=== PATIENT | female | born 1955 | race Caucasian/White ===

== ENCOUNTER → 2018-08-05 14:26 | Outpatient (CLI) | payer OTHER, SELFPAY ==
--- NOTE | 2018-08-05 14:38 | US_ITS ---
STUDY: ULTRASOUND OF THE FEMALE PELVIS - COMPLETE REASON FOR EXAM: Female, 63 years old. Abdominal bloating. History of hysterectomy. LMP: Unknown. TECHNIQUE: Transabdominal and Transvaginal, the latter utilized to optimize detail TECHNICAL QUALITY: Adequate. COMPARISON: CT abdomen and pelvis February 14, 2014. FINDINGS: The uterus is surgically absent. The right ovary is non-visualized. There is no visualized right adnexal mass or complex lesion. There is normal arterial and normal venous vascularity. The left ovary is non-visualized. There is no visualized left adnexal mass or complex lesion. There is normal arterial and normal venous vascularity. There is no fluid in the cul-de-sac. The pre void volume of the bladder was 131.7 ml. Polycystic ovary disease: No. US/Pelvic (Non ) IMPRESSION: 1. The uterus is surgically absent. 2. The bilateral ovaries are not visualized or 3. No demonstrated pelvic mass or fluid collection. Electronically Signed: Lenny Enriquez MD at 16:43 EST , Service support ,
== END ==
PROVIDERS: Family Provider Internal Medicine; PCP Internal Medicine; Referring Provider Internal Medicine; Visit Provider Internal Medicine
DX: R14.0 Abdominal distension (gaseous) (principal)
CPT/HCPCS: 76856

== ENCOUNTER → 2020-12-16 15:14 | Outpatient (CLI) | payer MEDICAID, SELFPAY ==
[2020-12-16 15:45] LABS: Hematocrit 40.4 % (37-47); Hemoglobin 12.7 g/dL (12.0-15.0); Mean Corp Hgb Conc 31.4 g/dL (32-36); Mean Corpuscular Hgb 27.5 pg (27.0-32.0); Mean Corpuscular Volume 87.4 fL (81-99); Mean Platelet Vol. 11.4 fl (6.2-12.0); Platelet Count 282 K/mm3 (150-450); RBC Distribution Width CV 13.2 % (11.6-14.6); RBC Distribution Width SD 42.2 fl (35.1-43.9); Red Blood Count 4.62 M/mm3 (4.2-5.4); White Blood Count 8.2 K/mm3 (4.4-11.0)
== END ==
PROVIDERS: PCP Internal Medicine; Referring Provider Internal Medicine; Visit Provider Internal Medicine
DX: K62.5 Hemorrhage of anus and rectum (principal)
CPT/HCPCS: 85027

== ENCOUNTER → 2021-01-22 15:47 | Outpatient (CLI) | payer MEDICARE, SELFPAY ==
[2021-01-22 17:45] LABS: CRP 5.96 mg/L (0.0-3.0)
[2021-01-24 16:08] LABS: Endomysial Antibody IgA Negative (Negative)
[2021-01-24 22:31] LABS: Immunoglobulin A 232 mg/dL (87-352); t-Transglutaminase IgA <2 U/mL (0-3)
== END ==
PROVIDERS: PCP Internal Medicine; Referring Provider Internal Medicine Gastroenterology; Visit Provider Internal Medicine Gastroenterology
DX: R19.7 Diarrhea, unspecified (principal)
CPT/HCPCS: 36415; 82784; 83516; 86140; 86255

== ENCOUNTER → 2021-06-11 07:17 | Outpatient (CLI) | payer MEDICARE, SELFPAY ==
--- NOTE | 2021-06-11 07:33 | MRI_ITS ---
STUDY: MRI BRAIN WITHOUT CONTRAST REASON FOR EXAM: Female, 65 years old. ATAXIA, ABN TANDEM GAIT TEST, memory issues, unsteady TECHNIQUE: Standardized multiplanar fat and water weighted pulse sequences were obtained. COMPARISON: None. FINDINGS: Normal size of the ventricles and extra-axial spaces for the patient''s age. There are multiple white matter hyperintensities, distributed throughout the deep white matter tracts of the cerebral hemispheres, consistent with mild chronic white matter ischemic changes. Normal bilateral basal ganglia. Normal thalami. There is no extra-axial fluid accumulation. Normal sella turcica, pituitary gland, infundibular stalk, optic chiasm and hypothalamus. Normal tectal plate and pineal gland. Normal midbrain, joseph and medulla. Normal cerebellum. Normal basal cisterns. MRI/Brain without Contrast IMPRESSION: No acute intracranial abnormality. Mild chronic microvascular ischemic changes. Electronically Signed: Claudia Basilio MD at 15:29 EST Tel , Service support ,
== END ==
PROVIDERS: PCP Internal Medicine; Referring Provider Internal Medicine; Visit Provider Internal Medicine
DX: R26.9 Unspecified abnormalities of gait and mobility (principal)
CPT/HCPCS: 70551

== ENCOUNTER 2021-08-22 11:18 | Outpatient (CLI) | payer MEDICARE, SELFPAY ==
[2021-08-22 12:45] LABS: CPK Total, Creatine Kinase 76 U/L (26-192); Thyroid Stim Hormone (TSH) 1.15 uIU/mL (0.358-3.74)
[2021-09-01 20:07] LABS: Free Kappa Light Chains 25.8 mg/L (3.3-19.4); Free Lambda Light Chains 18.2 mg/L (5.7-26.3); Intrinsic Factor Ab 1.1 AU/mL (0.0-1.1); Vitamin B1, Thiamine 143.3 nmol/L (66.5-200.0)
[2021-09-01 20:25] LABS: Myoglobin, Serum 29 ng/mL (25-58)
== END 2021-08-22 23:59 | disposition home or self-care (01) ==
LOC: MTLAB 11:19
PROVIDERS: PCP Internal Medicine; Referring Provider Psychiatry & Neurology Neurology; Visit Provider Psychiatry & Neurology Neurology
DX: R26.9 Unspecified abnormalities of gait and mobility (principal); E11.9 Type 2 diabetes mellitus without complications; G31.84 Mild cognitive impairment of uncertain or unknown etiology; E53.8 Deficiency of other specified B group vitamins; R20.0 Anesthesia of skin
CPT/HCPCS: 36415; 82550; 82746; 83874; 83883; 84425; 84443; 86340

== ENCOUNTER 2021-09-03 10:39 | Outpatient (CLI) | payer MEDICARE, SELFPAY ==
[2021-09-05 14:09] LABS: Albumin 4.1 g/dL (2.9-4.4); Alpha-1-Globulins 0.2 g/dL (0.0-0.4); Alpha-2-Globulins 0.9 g/dL (0.4-1.0); Gamma Globulin 1.3 g/dL (0.4-1.8); Immunoglobulin A 255 mg/dL (87-352); Immunoglobulin G 1387 mg/dL (586-1602); Immunoglobulin M 149 mg/dL (26-217); PROEL- TOTAL PROTEIN 7.6 g/dL (6.0-8.5)
== END 2021-09-03 23:59 | disposition home or self-care (01) ==
LOC: MTLAB 10:40
PROVIDERS: PCP Internal Medicine; Referring Provider Psychiatry & Neurology Neurology; Visit Provider Psychiatry & Neurology Neurology
DX: R20.0 Anesthesia of skin (principal); G62.9 Polyneuropathy, unspecified
CPT/HCPCS: 36415; 82784; 84165; 86334; 86335

== ENCOUNTER 2021-09-12 07:48 | Outpatient (CLI) | payer MEDICARE, SELFPAY ==
--- NOTE | 2021-09-12 07:53 | CDU_ITS ---
Reason For Study: CAROTID STENOSIS Rt. Velocities/BP Lt. Velocities/BP Prox CCA 77.3/18.6 cm/sec. Prox CCA 100.2/22.8 cm/sec. Mid CCA 95.6/29.1 cm/sec. Mid CCA 101.4/30.2 cm/sec. Dist CCA 120.4/36.9 cm/sec. Dist CCA 84.3/29.0 cm/sec. Prox ICA 118.0/32.1 cm/sec. Prox ICA 86.7/29.0 cm/sec. Mid ICA 97.9/15.7 cm/sec. Mid ICA 97.8/42.5 cm/sec. Dist ICA 86.3/12.7 cm/sec. Dist ICA 90.4/33.9 cm/sec. Rt. ICA/CCA = 118.0/120.4=1.0. Lt. ICA/CCA = 97.8/101.4=1.0. Prox ECA 118.2/17.7 cm/sec. Prox ECA 100.2/17.9 cm/sec. Rt. Vert. 47.9/13.8 cm/sec. Lt. Vert. 55.6/18.2 cm/sec. Right Extracranial There is intimal thickening but no significant atherosclerotic plaque noted in the right common carotid artery. There is intimal thickening but no significant atherosclerotic plaque noted in the right internal carotid artery. There is no significant atherosclerotic plaque noted in the right external carotid artery. Antegrade flow is noted in the right vertebral artery. Left Extracranial There is intimal thickening but no significant atherosclerotic plaque noted in the left common carotid artery. There is intimal thickening but no significant atherosclerotic plaque noted in the left internal carotid artery. There is no significant atherosclerotic plaque noted in the left external carotid artery. Antegrade flow is noted in the left vertebral artery. Procedure Carotid Duplex 31662. This is a Carotid Duplex examination using B-mode, color flow and specral Doppler. Exam performed in department. VL/Carotid Duplex Ultrasound Interpretation Summary No significant atherosclerotic plaque or stenosis noted in the internal carotid arteries bilaterally. Flow within the vertebral arteries is antegrade bilaterally. Ordering Physician: Isabel Bro Referring Physician: Isabel Bro Performed By: Jovita Kearney, ASHLEY, RVT
== END 2021-09-12 23:59 | disposition home or self-care (01) ==
LOC: CVS 07:49
PROVIDERS: PCP Internal Medicine; Referring Provider Internal Medicine; Visit Provider Internal Medicine
DX: I65.23 Occlusion and stenosis of bilateral carotid arteries (principal)
CPT/HCPCS: 93880

== ENCOUNTER 2021-09-15 08:55 | Day surgery (SDC) | payer MEDICARE, SELFPAY ==
[2021-09-15] VITALS (12 sets, daily range): BP systolic 97–132; BP diastolic 65–86; PULSE 86–104; RESP 16; TEMP 36.5–37.2; O2SAT 92–99; BMI 38.8
--- NOTE | 2021-09-15 | MASS_PTH ---
PATIENT: MARGARET GARCIA LOC: [facility] [place] U#:[id number] AGE/SX: 66/F ROOM: RE09/15/[address]: Dr. Rasheed Roque MD : 1955 BED: DIS: 09/15/2021 SPEC #: [id number] RECD: 09/15/21 15:53 STATUS: LETICIA REQ #: [id number] ELSA: 09/15/21 00:[address]: Rasheed Roque DEPT: SURGICAL PATHOLOGY RECD BY: Joey Iqbal ENTERED: 09/16/21 10:36 SP TYPE: Mass OTHR DR: Dr. Isabel Bro, DO Tissues: Arm, NOS Procedures: Surgery Specimen Level III HEADER OPERATION: Excision painful soft tissue mass, outer arm PRE-OP DIAGNOSIS: 6 cm painful soft tissue mass left outer arm TISSUE SUBMITTED: Left outer arm mass MICROSCOPIC DIAGNOSIS Left outer arm mass, excision: Mature adipose tissue consistent with lipoma. AM:mariel 09/17/2021 MICROSCOPIC DESCRIPTION Slides are reviewed. GROSS DESCRIPTION Received in fixative is one container labeled with the patient's name and designated left arm mass. The specimen consists of multiple irregular fragments of simmons-yellow fibrofatty tissue ranging in size from 0.8 to 8 cm. Serial sections reveal homogenous yellow cut surfaces without areas of cyst formation, necrosis or myxoid change. Ct Tech sections are submitted in one cassette. / AM:mariel 09/16/2021 TC:1 CPT: 66288
--- NOTE | 2021-09-15 00:03 | PCM.HP.BLA ---
History and Physical Date of Admission: 09/15/21 HISTORY OF PRESENT ILLNESS 65 year old woman presents with a painful soft tissue mass left outer arm that has been increasing in size over the last several months. Recently she has noticed intermittent paresthesias in her left arm. She has no problem with range of motion of the left upper extremity. She did have left carpal tunnel surgery back in 2016. She also had bilateral trigger thumb surgery in 2017. Besides the mass left outer arm, she also complains of trigger finger right ring finger. Occasionally it gets stuck and she has to manually straighten out the finger. She denies fever. She denies trauma. She denies recent infection. She denies numbness in her fingers. She presents at this time for further evaluation and treatment. PAST MEDICAL HISTORY Anemia Arthritis Back problem Carpal tunnel syndrome, bilateral Diabetes Former smoker High blood pressure High cholesterol IBS (irritable bowel syndrome) Mass of left upper extremity Osteoarthritis Trigger finger, right ring finger Vitamin D deficiency PAST SURGICAL HISTORY H/O bilateral breast reduction surgery H/O total hysterectomy Hematoma History of carpal tunnel release of both wrists History of dilation and curettage Trigger finger ALLERGIES acetaminophen [From Vicodin] hydrocodone [From Vicodin] tramadol [From Ultram] Penicillins MEDICATIONS amlodipine cholecalciferol (vitamin D3) levothyroxine metformin semaglutide simvastatin FAMILY HISTORY Mother Anesthesia complication Angina at rest Heart disease High cholesterol CVA (cerebral vascular accident) SOCIAL HISTORY Smoking Status: Former smoker alcohol intake: never substance use type: does not use REVIEW OF SYSTEMS General - Denies fever, fatigue, and weight loss. Eyes - Denies cataracts and glaucoma. ENT - Denies nasal congestion and sore throat. Endocrine - Denies excessive thirst and urination. Has diabetes mellitus. Skin - Denies skin cancer. Has painful soft tissue mass left outer arm. Musculoskeletal - Has joint pain, joint stiffness, weakness of muscles and joints. Denies back pain, and arthritis. Had bilateral carpal tunnel surgery. Had bilateral trigger thumb surgery. Has trigger finger right ring finger. Neuro - Denies headaches. Cardiovascular - Denies chest pain, fatigue, and shortness of breath with exertion. Psych - Denies anxiety and depression. Respiratory - Denies chronic cough and shortness of breath. Patient is a former smoker. Gastrointestinal - Denies nausea, vomiting and constipation. Has diarrhea. Hematologic - Denies abnormal bruising and bleeding. Genitourinary - Denies hematuria and urinary frequency. PHYSICAL EXAMINATION General - Alert and Oriented HEENT - PERRL. EOMI. Throat is clear. Neck - Supple and nontender. No cervical adenopathy. Lungs - Clear to auscultation. Heart - Regular rate and rhythm. Abdomen - Soft and nondistended. Extremities - FROM. No axillary adenopathy. Radial pulses are palpable. On the left outer arm is a soft tissue mass that measures 6 cm. It is mobile. No evidence of infection. No ulceration. Mild tenderness to palpation. No sensory deficits with pinprick fingers left hand. Tinel is negative at wrist bilaterally and negative at elbow bilaterally. On the right ring finger is evidence of triggering with clicking noted at the A1 loren in the distal palm. She was able to straighten the finger out on its own. Neuro - CN II-XII grossly intact. Psych - Normal mood and affect. ASSESSMENT 1. 6 cm painful soft tissue mass left outer arm. 2. Trigger finger right ring finger. 3. Diabetes mellitus. 4. Former smoker. 5. History of bilateral carpal tunnel surgery. 6. History of bilateral trigger thumb surgery. PLAN Patient has and enlarging soft tissue mass left outer arm that has associated intermittent paresthesias. She has no problems with using her left arm and shoulder. Recommend excision of this painful soft tissue mass left outer arm and send it to Pathology for analysis to rule out carcinoma. Due to the anticipated large size of the cavity, a drain may be needed for 7-10 days. She will also wear a compression johnson wrap for 6 weeks to also help in minimizing a seroma in the wound. If a seroma DEVELOPS THEN WOULD NEED DRAINAGE UNDER ULTRASOUND GUIDANCE. Surgery can be done under local anesthesia and IV sedation on an outpatient basis. She also has a trigger finger right ring finger. She is still able to extend her finger without using her other hand. She was not interested in steroid injection at this time. She will wait until her left arm surgery heals before deciding on a date for surgical release of her trigger finger right ring finger. I think the paresthesias are related to the presence of the mass left outer arm. After surgery, I anticipate the paresthesias should improve. If they don't or if she starts to develop consistent numbness in her fingers, then will repeat the NCS and EMG. Also at the time of the NCS, will need an x-ray of her neck to check to see if the symptomatology is related to a problem in the neck. AT THE TIME OF THAT SURGERY WE CAN ALSO ORDER AN X-RAY OF THE RIGHT HAND TO LOOK FOR ANY BONY ABNORMALITIES THAT MAY BE RESPONSIBLE FOR HER SYMPTOMATOLOGY. AT THE TIME OF THE TRIGGER FINGER SURGERY, IT CAN BE DONE UNDER A ROSA ELENA BLOCK ANESTHESIA WITH TOURNIQUET CONTROL. PATIENT HAS DIABETES MELLITUS AND HER HGBA1C NEEDS TO BE LESS THAN 8 BEFORE PROCEEDING WITH ELECTIVE SURGERY. HER LAST VALUE IN THE COMPUTER SHOWED A HGBA1C LEVEL OF 5.8 ON 06/03/16. WILL CHECK WITH HER PCP TO SEE IF THEY HAVE A RECENT LEVEL. OTHERWISE WILL ORDER IT A PREOP LAB THAT WOULD NEED TO BE DONE PRIOR TO SURGERY. Patient was informed of the risks and complications of the procedure including alternatives to surgery. These were discussed with the patient personally. Patient voices understanding and wishes to proceed. Some of the risks and complications were included in a form from the [employer]. Some of the risks and complications that were discussed included but were not inclusive of failure to diagnose including symptom relief, pain, infection, numbness, stiffness, loss of digit, RSD (CRPS), need for further surgery, contracture, and wound healing problems. We discussed the current risks associated with COVID-19. While it is understood that there is a community spread of COVID-19, the risk of justin COVID-19 while at [facility] ([facility]) is very low; however, the risk cannot be completely mitigated because of the community spread of the disease. We discussed in detail the risk of exposure to and/or potential harm posed by the COVID-19 virus with having a surgery/procedure at this time versus the risk of delaying the surgery/procedure. It is not possible to know either the risk of delaying the surgery or procedure or chance of getting an infection with perfect accuracy, but a joint decision was made to proceed at this time with the scheduled surgery/procedure as indicated on the consent form. Patient was notified that we will need to comply with any screening or testing [facility] wishes to perform or that surgery may be delayed for any positive results. Procedure Criteria Procedure Type: Elective COVID Risk Discussion: The surgeon/proceduralist and patient have discussed in detail the risk of exposure to and/or potential harm posed by the COVID-19 virus with having a surgery/procedure at this time versus the risk of delaying the surgery/procedure. It is not possible to know either the risk of delaying the surgery or procedure or chance of getting an infection with perfect accuracy, but a joint decision was made between the patient and the surgeon/proceduralist to proceed at this time with the scheduled surgery/procedure as indicated on the consent form.
[2021-09-15] MEDS: Lactated Ringers 1,000 ML 15 ML IV ×2 (09:05→14:19)
[2021-09-15 09:41] LABS: Bedside Glucose 115 mg/dL (74-106)
[2021-09-15] MEDS: Lidocaine 1% /Epi 1:100 (50ml) 50 ML VIAL (12:57)
[2021-09-15] MEDS: Mupirocin Ointment 22gm Tube 1 APPLIC (14:08)
--- NOTE | 2021-09-15 14:12 | OP.PCM_ITS ---
Problems Associated Problem List Diagnoses (1) Mass of left upper extremity: (2) Former smoker: (3) Diabetes: (4) Hemoglobin A1c less than 7.0%: Report of Operation Date of Procedure: 09/15/21 Pre-Operative Diagnosis: 1. 6 cm painful soft tissue mass left outer arm. 2. Diabetes mellitus. 3. HgbA1c of 5.8 on 06/05/21 4. Former smoker. Post-Operative Diagnosis: Same. Surgery/Procedure Performed:: Excision 6 cm painful soft tissue mass left outer arm with 6 cm layered closure. Description of Surgical Findings:: 65 year old woman presents with a painful soft tissue mass left outer arm that has been increasing in size over the last several months. Recently she has noticed intermittent paresthesias in her left arm. She has no problem with range of motion of the left upper extremity. She did have left carpal tunnel surgery back in 2016. She also had bilateral trigger thumb surgery in 2017. Besides the mass left outer arm, she also complains of trigger finger right ring finger. Occasionally it gets stuck and she has to manually straighten out the finger. She denies fever. She denies trauma. She denies recent infection. She denies numbness in her fingers. Patient has diabetes mellitus and her latest HgbA1c was 5.8 on 06/04/21. For elective surgery, HgbA1c needs to be less than 8. Patient was informed of the risks and complications of the procedure including alternatives to surgery. These were discussed with the patient personally. Patient voices understanding and wishes to proceed. Some of the risks and complications were included in a form from the [employer]. I used Tae absorbable hemostat. Reference Number - [id number]. Lot Number - [id number]. May 01, 2026. Surgeon: Rasheed Roqeu acquisition lead: None Type of Anesthesia: Local MAC (xylocaine with epinephrine and IV sedation.) Specimen's removed: Painful soft tissue mass left outer arm to Pathology. Drains: Alen. Estimated Blood Loss (mL): 25. Description of Procedure: * Patient was taken to OR in supine position and was given IV sedation. The left arm was prepped and draped in the usual fashion. SCD's were placed for DVT prophylaxis. Perioperative antibiotics were given intravenously. The soft tissue mass left outer arm was infiltrated with xylocaine and epinephrine. After waiting 5 minutes for the anesthetic to take effect, I made a longitudinal incision over the soft tissue mass down into the subcutaneous tissue. The soft tissue mass was sharply excised. It was firm to palpation. It showed some adherence to the underlying muscle. The soft tissue mass was sent to Pathology for analysis to rule out carcinoma. The soft tissue mass was clinically consistent with a fibrous lipoma. The wound was irrigated with saline. Hemostasis was obtained with electrocautery. I placed a size 15 Alen drain through a separate stab incision inferiorly and secured to the skin with 3-0 Nylon suture. I sprayed Tae absorbable hemostat into the wound to minimize seroma formation. The wound was closed in a layered fashion with 3-0 Monocryl interrupted sutures for the deep dermis and subcutaneous tissue. The skin was approximated with 4-0 Prolene simple interrupted and vertical mattress interrupted sutures. Antibiotic ointment was applied to the suture line followed by 4x4 gauze and a compression johnson wrap. * Patient tolerated the procedure well and was sent to PACU in satisfactory condition. Patient will be sent home on antibiotics and pain medication. She will keep her left arm elevated during the initial postoperative period. Patient will followup in a week for a wound check and for discussion of the pathology report. Will remove the drain in 7-10 days and will remove the sutures in 2 weeks. * Grafts/Implants Used: Tae. Complications None. Admit VTE Documentation VTE Present on Admission: No VTE Mechan Device Prophylaxis: SCD's VTE Pharm Prophylaxis ordered?: No Addendum Addendum: Surgery Charges CPT - 86509 ICD-10 - R22.32, E11.9, R73.09, Z87.891
--- NOTE | 2021-09-15 14:12 | PCM.DC ---
Discharge Instructions Diet Discharge Diet: Carb Control Diet Activity Discharge Activity: May Not Drive (until seen in the office.), May Not Shower (until the drain is removed. ) and - (elevate left arm. no heavy lifting.) May shower in (days): 7 (after the drain is removed in the office.) May resume sexual activity in: 10-14 days Weight Bearing Status: Weight bearing as tolerated Lifting Restrictions: 20 lbs. Keep extremity elevated above heart level: Left Arm Dressing / Incision Call your doctor if your incision/area has: Continuous Slow Oozing, Sudden Increased Bleeding, Increased Pain/ Swelling, Increased Redness, Foul Smelling Discharge and Swelling at the incision site Call your doctor if you observe: Fever of 101 or Higher, Coldness, Increased Pain, Shortness of breath, Chest pain, Calf discomfort and Uncontrolled pain Suture Line Care: - (will apply the vac tomorrow.) Remove Dressing in: 2 days (vac dressing change 3 times per week at 150 mmHg continuous suction.) Cleanse incision/area with: Soap & Water (at the time of the vac change.) Drain: Suction (to bulb suction. empty and record output daily.) Follow Up Care Please Follow Up With: Rasheed Roque MD When: one week. call [phone] for appt. Test Results: Test results from this visit will be discussed in further detail at your follow-up appointment, if applicable. Discharge Plan Admission Primary Reason for Your Visit: painful lipoma left outer arm surgery Attending Provider: Rasheed Roque Primary Care Provider: Isabel Bro Discharge Orders/Prescriptions Prescriptions: New clindamycin HCl [Cleocin HCl] 300 mg capsule 300 mg PO TID Qty: 30 RF: 0 L.acidoph,saliva-B.bif-S.therm [Acidophilus Probiotic Blend] 175 mg capsule 1 cap PO DAILY Qty: 20 RF: 0 oxycodone-acetaminophen [Percocet] 5-325 mg tablet 1 tab PO Q4H PRN (Reason: pain (scale score 7-10)) 7 Days Qty: 40 RF: 0 diazepam [Valium] 5 mg tablet 5 mg PO BID PRN (Reason: spasms) Qty: 20 RF: 0 clindamycin HCl [Cleocin HCl] 300 mg capsule 300 mg PO TID Qty: 15 RF: 0 L.acidoph,saliva-B.bif-S.therm [Acidophilus Probiotic Blend] 175 mg capsule 1 cap PO DAILY Qty: 20 RF: 0 oxycodone-acetaminophen [Percocet] 5-325 mg tablet 1 tab PO Q4H PRN (Reason: pain (scale score 7-10)) 7 Days Qty: 40 RF: 0 diazepam [Valium] 5 mg tablet 5 mg PO BID PRN (Reason: spasms) Qty: 20 RF: 0 No Action Ozempic 1 mg/dose (2 mg/1.5 mL) pen injector 1 mg subcut QWEEK RF: 0 metformin 500 mg tablet 50 mg PO BIDWMEAL RF: 0 amlodipine 5 mg tablet 5 mg PO DAILY RF: 0 levothyroxine 112 mcg tablet 112 mcg PO DAILY RF: 0 hydrochlorothiazide 25 mg tablet 25 mg PO DAILY RF: 0 cholecalciferol (vitamin D3) 50 mcg (2,000 unit) capsule 4,000 unit PO DAILY RF: 0 mecobalamin (vitamin B12) 10,000 mcg recon soln 1,000 mcg IM QMONTH RF: 0 simvastatin 20 mg Tablet 20 mg PO QHS RF: 0 Referrals / Follow Up: Isabel Bro DO [Primary Care Provider] - Disposition Disposition (needs filled in before D/C Order can be placed): Home, Self Care
--- NOTE | 2021-09-15 14:20 | PCM.DC ---
Discharge Instructions Diet Discharge Diet: Carb Control Diet Activity May shower in (days): 7 (after the drain is removed in the office.) May resume sexual activity in: 10-14 days Weight Bearing Status: Weight bearing as tolerated Keep extremity elevated above heart level: Left Arm Dressing / Incision Call your doctor if your incision/area has: Continuous Slow Oozing, Sudden Increased Bleeding, Increased Pain/ Swelling, Increased Redness, Foul Smelling Discharge and Swelling at the incision site Call your doctor if you observe: Fever of 101 or Higher, Coldness, Increased Pain, Shortness of breath, Chest pain, Calf discomfort and Uncontrolled pain Suture Line Care: - (will apply the vac tomorrow.) Cleanse incision/area with: Soap & Water (at the time of the vac change.) Drain: Suction (to bulb suction. empty and record output daily.) Follow Up Care Please Follow Up With: Rasheed Roque MD Test Results: Test results from this visit will be discussed in further detail at your follow-up appointment, if applicable. Discharge Plan Admission Primary Reason for Your Visit: painful lipoma left outer arm surgery Attending Provider: Rasheed Roque Primary Care Provider: Isabel Bro Discharge Orders/Prescriptions Prescriptions: New clindamycin HCl [Cleocin HCl] 300 mg capsule 300 mg PO TID Qty: 30 RF: 0 L.acidoph,saliva-B.bif-S.therm [Acidophilus Probiotic Blend] 175 mg capsule 1 cap PO DAILY Qty: 20 RF: 0 oxycodone-acetaminophen [Percocet] 5-325 mg tablet 1 tab PO Q4H PRN (Reason: pain (scale score 7-10)) 7 Days Qty: 40 RF: 0 diazepam [Valium] 5 mg tablet 5 mg PO BID PRN (Reason: spasms) Qty: 20 RF: 0 No Action Ozempic 1 mg/dose (2 mg/1.5 mL) pen injector 1 mg subcut QWEEK RF: 0 metformin 500 mg tablet 50 mg PO BIDWMEAL RF: 0 amlodipine 5 mg tablet 5 mg PO DAILY RF: 0 levothyroxine 112 mcg tablet 112 mcg PO DAILY RF: 0 hydrochlorothiazide 25 mg tablet 25 mg PO DAILY RF: 0 cholecalciferol (vitamin D3) 50 mcg (2,000 unit) capsule 4,000 unit PO DAILY RF: 0 mecobalamin (vitamin B12) 10,000 mcg recon soln 1,000 mcg IM QMONTH RF: 0 simvastatin 20 mg Tablet 20 mg PO QHS RF: 0 Referrals / Follow Up: Isabel Bro DO [Primary Care Provider] - Disposition Disposition (needs filled in before D/C Order can be placed): Home, Self Care
[2021-09-15] MEDS: Acetaminophen 325 MG Tablet PO (15:45)
[2021-09-15] MEDS: oxyCODONE 5 MG Tablet PO (15:45)
== END 2021-09-15 23:59 | disposition home or self-care (01) ==
LOC: SDC 08:56 → AC 09:10
PROVIDERS: PCP Internal Medicine; Referring Provider Surgery; Visit Provider Surgery
PROC: (CPT 24071; principal; 2021-09-15 10:15)
DX: R22.32 Localized swelling, mass and lump, left upper limb (principal); E11.9 Type 2 diabetes mellitus without complications; Z87.891 Personal history of nicotine dependence; E78.00 Pure hypercholesterolemia, unspecified; R73.09 Other abnormal glucose; M65.341 Trigger finger, right ring finger
CPT/HCPCS: 24071; 01710; 82962; 87426; 88304; 88305; C9803; J7120; J2405

== ENCOUNTER 2021-11-28 07:00 | Outpatient (RCR) | payer MEDICARE, SELFPAY ==
--- NOTE | 2021-11-04 08:58 | HP.PTEVAL ---
Patient's Visit Information MARGARET GARCIA is a 66 year old F referred to Physical Therapy by Dr. Isabel Bro DO with a diagnosis of L shoulder calcific tendonitis. Date of Evaluation: 11/04/21 Physical Therapist: Javed Medina, PT, ATC - Visit Plan Frequency: 2-3x /Week Duration: 4-6 Weeks Plan: L shoulder AAROM, rot cuff and scap stab ex's, UBE, and HEP. CP for pain - Subjective Pt reports she has had L shoulder pain since June. Pt reports at that time she has told to go to PT, but had to have a L UE surgery performed in July, she she was just given the green light to proceed. Pt notes she had x-rays at the time that showed tendonitis and OA of the L shoulder. Pt notes she was also given a cortisone injection that helped a lot. Pt notes she still has pain though today, especially if she moves the wrong way. Pt notes Occasional sleep difficulty secondary to pain. Pt reports she had L UE tingling and numbness prior to her surgery, but rarely since. Pt is R hand dominant. Pt reports reaching across her body and reaching overhead causes her increased pain. No PMHx prior to June. 3/10 pain at rest on the top of her shoulder, 5/10 pain when at its worst. Pt is retired at this time. - Pain L shoulder Pain Intensity (Out of 10): 3 Pain Intensity Range: 5 - Objective Neuro: B UE sensation is WNL to light touch with exception to surrounding incision area. B bicipital reflex= 2/3. Palpation: Pt is very tender along the region of the supraspinatus region. Pt is also sore along the lateral aspect of the L shoulder. ROM: R shoulder flex= 150, abd= 130, ER= 65, IR WNL; L shoulder flex= 120, abd= 90, ER= 55, IR WNL. MMT: R shoulder flex= 13.7, abd= 15.6, ER= 17, IR= 18.6 #F; L shoulder flex= 4.3, abd= 4, ER= 6, IR= 16 #F. Special tests: Pt has a positive empty can test. No other pos tests today - Balance/Special Test Scores Quick DASH Score: 20.4525 - Goals Goal 1:: Decrease L shoulder pain x 50% to aid with sleep Goal Time Frame: 4-6 Weeks Goal 2:: Increase L shoulder strength x 5#F in all planes to aid with IADL's Goal Time Frame: 4-6 Weeks Goal 3:: Increase L shoulder flex and abd ROM x 20 degrees to aid with overhead lifting Goal Time Frame: 4-6 Weeks Goal 4:: I with HEP Goal Time Frame: 4-6 Weeks - Rehabilitation Potential Physical Therapy Diagnosis: L shoulder pain, weakness, and limited ROM secondary to rotator cuff insufficiency resulting in calcific tendonitis of the L biceps Rehabilitation Potential: Good - Anticipated Interventions Patient/Client Instruction: Educate patient on: Condition, Plan of Care For the Purpose of:: To improve self management Therapeutic Exercise to Include: Strength training, Endurance training, Flexibilty training, Active ROM, Scapular Strength/Stabilization For the Purpose of:: To decrease pain, To increase ROM, To improve muscle performance and motor function Cryotherapy (ice pack, ice massage): Yes For the Purpose of:: To decrease pain Thank you for the opportunity to evaluate your patient. For Medicare and Medicare HMO plans, please review the plan of care and approve it. It will need to be FAXED BACK to us at [phone] for Medicare purposes. For Medicare only, by signing this I certify the plan of care. Please let me know if there are questions or concerns regarding this plan of care. Physician Signature: Date:
--- NOTE | 2021-12-30 09:57 | HP.PTDCSUM ---
It has been my pleasure to treat MARGARET GARCIA referred by Dr. Isabel Bro DO, with the diagnosis of L shoulder calcific tendonitis for a total of 9 visit(s). Discharge Date: 11/28/21 Please see the following information for a summary of their discharge status. Subjective: Pt reports that her shoulder is doing good with no pain. She has had no pain for at least a week. She has HEP and is doing it at home. L shoulder Pain Intensity (Out of 10): 0 % Improvement: 100 Objective/Function: L shoulder flex 18.3#. L shoulder flex 163 degrees Goal 1:: Decrease L shoulder pain x 50% to aid with sleep Goal Progress: Goal Met Goal 2:: Increase L shoulder strength x 5#F in all planes to aid with IADL's Goal Progress: Goal Met Goal 3:: Increase L shoulder flex and abd ROM x 20 degrees to aid with overhead lifting Goal Progress: Goal Met Goal 4:: I with HEP Goal Progress: Goal Met Plan: DC PT to HEP Discharge Comments: DC PT to HEP If there are questions or concerns regarding this patient's physical therapy, please feel free to call me at [phone]. Thank you for the referral of this patient. Sincerely, Javed Medina, PT, ATC Balance/Gait/Functional tests - Balance/Special Test Scores Quick DASH Score: 2.2728
== END 2021-11-28 19:00 | disposition home or self-care (01) ==
LOC: PT 07:00
PROVIDERS: PCP Internal Medicine; Referring Provider Internal Medicine; Visit Provider Internal Medicine
DX: M75.32 Calcific tendinitis of left shoulder
CPT/HCPCS: 97110; 97161; 97530

== ENCOUNTER → 2022-02-16 | Outpatient (CLI) | payer MEDICARE, SELFPAY ==
[2022-02-16 18:28] LABS: Rheumatoid Factor < 10.0 IU/mL (<15)
== END | disposition home or self-care (01) ==
PROVIDERS: PCP Internal Medicine; Referring Provider Psychiatry & Neurology Neurology; Visit Provider Psychiatry & Neurology Neurology
DX: M19.90 Unspecified osteoarthritis, unspecified site (principal)
CPT/HCPCS: 36415; 86431

== ENCOUNTER → 2022-09-08 | Outpatient (CLI) | payer MEDICARE, SELFPAY ==
--- NOTE | 2022-09-08 08:02 | MRI_ITS ---
STUDY: MRI BRAIN WITHOUT CONTRAST REASON FOR EXAM: Female, 67 years old. WORSENING HEADACHES, blurred vision, gait issues TECHNIQUE: Standardized multiplanar fat and water weighted pulse sequences were obtained. COMPARISON: No relevant prior imaging available for comparison. HEMISPHERES, CEREBELLUM AND BRAINSTEM: 1. The cerebral parenchyma, ventricular system, subarachnoid spaces have normal configuration and density. There is a normal gyral pattern. There is normal lovett/white differentiation. No midline shift.. 2. The hemispheric white matter has normal appearance. 3. No intraparenchymal mass, hemorrhage, or acute territorial infarct. 4. The cerebellum, brainstem, basilar and suprasellar cisterns have normal appearance. No Chiari malformation. PITUITARY: Infundibulum and pituitary have normal configuration. Midline structures appear normal. CSF SPACES: Appropriate for age. No hydrocephalus. Basal cisterns are patent. VESSELS: 1. There are normal flow voids noted in the great vessels at the skull base ORBITS AND PARANASAL SINUSES: 1. Both globes, extraocular muscles, optic nerves and retrobulbar fat appear unremarkable. 2. Paranasal sinuses are clear. BONY ELEMENTS: Bony elements of the cranial vault, facial skeleton and skull base have normal appearance. SCALP AND SOFT TISSUES: Normal appearance of the soft tissues of the scalp and the visualized face OTHER: None MRI/Brain without Contrast IMPRESSION: 1. No intracranial mass, hemorrhage, or acute territorial infarct. 2. No radiographically significant sinus disease. Electronically Signed: Landry Hernandez DO at 13:18 EST ,
== END | disposition home or self-care (01) ==
PROVIDERS: PCP Internal Medicine; Referring Provider Internal Medicine; Visit Provider Internal Medicine
DX: R51.9 Headache, unspecified (principal); G89.29 Other chronic pain
CPT/HCPCS: 70551

== ENCOUNTER 2024-04-19 08:30 | Outpatient (RCR) | payer MEDICARE, SELFPAY ==
--- NOTE | 2024-03-23 10:29 | HP.PTEVAL_ITS ---
Patient's Visit Information Visit Information Visit Information: MARGARET GARCIA is a 68 year old F referred to Physical Therapy by Dr. Isabel Bro DO with a diagnosis of LEFT LEG PAIN. Date of Evaluation: 03/23/24 Physical Therapist: Rasheed Ag, PT, Cert MDT, OCS Visit Plan Frequency: 2x /Week Duration: 4 Weeks Plan: PT INTERVENTIONS FLEXABILITY IT BAND ,MANUAL THERAPY STM/STICK /HAWK TOOL I TBAND ,US ,/ESTIM /CP AND STRENGTHENING EX'S HIPS GLUT MEDIUS Subjective Subjective: This 68 y/o female presents to physical therapy with leg pain. Patient has 6 weeks lateral leg. Patient noticed pain with a lot of walking. Location of pain lateral leg pain mid thigh below knee. Dr prescribed meloxicam . No imaging . Patient has some h/o back pain .Patient has h/o epidural injection many years. Aggravating factors walking on treadmill ,extended standing. Patient has not noticed any pain with bending/lifting. Denies paresthesia/tingling -. Patient is able to sleeping initially but meloxicam helps. Coughing/sneezing -. Bowel/bladder - No abnoram night pain. SOCIAL: VOCATION: RETIRED Pain Left Lower Extremity: Pain Intensity (Out of 10): 6 Comment: LATERAL Objective Objective: POSTURE: mild forward posture GAIT: reciprocal pattern PALAPTION: IT BAND ,greater trochanter ,insertion knee NEURO: denies paresthesia/tingling FLEXABILITY: IT band min tight ,piriformis min tight , hamstrings min tight LUMBAR ROM: flexion min loss ,extension min loss ,side glides min loss no pain MMT: quads/hams 4/5 ,hip flexion 4/5 ,( peak force) hip abduction 23.1 ,ankle 5/5 HIP IR: 40 degrees pain Special Tests L/S Slump test left side: Negative L/S Slump test right side: Negative L/S Left Straight Leg Raise: Negative L/S Right Straight Leg Raise: Negative Balance/Special Test Scores Lower Extremity Functional Score: 39 Goals Goal 1:: Patient to be I with HEP Goal Time Frame: 4-6 Weeks Goal 2:: Patient to demonstrate 50% improvement with less pain and improved function Goal Time Frame: 4-6 Weeks Goal 3:: Patient to improve peak force hip glut medius by 5-10 # to improve gait and function Goal Time Frame: 4-6 Weeks Goal 4:: Patient to improve LFES score by 5-8 points to improve QOL and function . Goal Time Frame: 4-6 Weeks Rehabilitation Potential Physical Therapy Diagnosis: This patient has greater trochanteric bursitis and IT syndrome with pain ,tender with palpation weakness hips glut medius impairs walking and standing thus benefit from skilled PT Rehabilitation Potential: Good Anticipated Interventions Patient/Client Instruction: Educate patient on: Condition and Plan of Care For the Purpose of:: To decrease pain, To decrease swelling/inflammation, To increase ROM, To improve nutrient delivery to tissue, To increase oxygenation perfusion, To improve muscle performance and motor function, To improve ability to perform ADL's, To increase tolerance to activity/condition/position, To improve ability of physical actions for home/community/work/leisure, To improve gait and locomotor functions, To improve health of tissue, To decrease soft tissue restriction and To increase flexibility/ROM Therapeutic Exercise to Include: Strength training, Balance training, Flexibilty training and Active ROM Comment: HIPS GLUT MEDIUS For the Purpose of:: To decrease pain, To increase ROM, To improve muscle performance and motor function, To increase tolerance to activity/condition/position, To improve ability of physical actions for home/community/work/leisure, To improve health of tissue, To decrease soft tissue restriction, To increase flexibility/ROM and To reduce risk of recurrence Manual Therapy Techniques to Include: Mobilization and Soft tissue mobilization Comment: JUDY For the Purpose of:: To decrease pain, To increase ROM, To improve muscle performance and motor function, To improve ability to perform ADL's, To increase tolerance to activity/condition/position, To improve health of tissue and To decrease soft tissue restriction TENS: Yes IF ES: Yes Cryotherapy (ice pack, ice massage): Yes Thermo therapy (hot pack): Yes Ultrasound (thermal/non thermal): Yes For the Purpose of:: To decrease pain, To increase ROM, To improve nutrient delivery to tissue, To increase oxygenation perfusion, To improve health of tissue and To decrease soft tissue restriction Text: Thank you for the opportunity to evaluate your patient. For Medicare and Medicare HMO plans, please review the plan of care and approve it. It will need to be FAXED BACK to us at [phone] for Medicare purposes. For Medicare only, by signing this I certify the plan of care. Please let me know if there are questions or concerns regarding this plan of care. Physician Si gnature: Date:
--- NOTE | 2024-04-19 09:21 | HP.PTDCSUM ---
Discharge Summary D/C summary: It has been my pleasure to treat MARGARET GARCIA referred by Dr. Isabel Bro DO, with the diagnosis of LEFT LEG PAIN for a total of 2 visit(s). Discharge Date: 04/19/24 Please see the following information for a summary of their discharge status. Subjective Subjective: DOING WELL Pain Left Lower Extremity: Pain Intensity (Out of 10): 0 Overall Improvement % Improvement: 75 Objective Objective/Function: POSTURE: mild forward posture GAIT: reciprocal pattern PALAPTION: unremarkable NEURO: denies paresthesia/tingling FLEXABILITY: IT band min tight ,piriformis min tight , hamstrings min tight LUMBAR ROM: flexion min loss ,extension min loss ,side glides min loss no pain MMT: quads/hams 4/5 ,hip flexion 4/5 ,( peak force) hip abduction 24.1 ,ankle 5/5 HIP IR: 40 degrees pain Goals Goal 1:: Patient to be I with HEP Goal Progress: Goal Met Goal 2:: Patient to demonstrate 50% improvement with less pain and improved function Goal Progress: Goal Met Goal 3:: Patient to improve peak force hip glut medius by 5-10 # to improve gait and function Goal Progress: Goal Met Goal 4:: Patient to improve LFES score by 5-8 points to improve QOL and function. Goal Progress: Goal Met Plan Plan: d/c to HEP D/C Information Discharge Comments: HEP d/c sentence: If there are questions or concerns regarding this patient's physical therapy, please feel free to call me at [phone]. Thank you for the referral of this patient. Sincerely, Rasheed Ag, PT, Cert MDT, OCS Balance/Gait/Functional tests Balance/Special Test Scores Lower Extremity Functional Score: 67 Improvement % Improvement: 75
== END 2024-04-19 19:00 | disposition home or self-care (01) ==
LOC: PT 08:30
PROVIDERS: PCP Internal Medicine; Referring Provider Internal Medicine; Visit Provider Internal Medicine
DX: M79.605 Pain in left leg (principal)
CPT/HCPCS: 97110; 97162; 97530

== ENCOUNTER → 2024-07-13 | Outpatient (CLI) | payer MEDICARE, SELFPAY ==
--- NOTE | 2024-07-13 08:08 | US_ITS ---
HISTORY: Epigastric pain. TECHNIQUE: Bardales scale and color doppler imaging was performed of the right upper quadrant. 81 images. COMPARISON: CT 02/14/2014. FINDINGS: LIVER: 17.8 cm in length. Increased echogenicity without focal lesion demonstrated. No intrahepatic ductal dilatation. MAIN PORTAL VEIN: Patent with flow in the appropriate direction. COMMON BILE DUCT: 4 mm in diameter. GALLBLADDER: No gallstones. 2 mm wall thickness. No pericholecystic fluid. Sonographic Rivera sign negative. PANCREAS: Not well visualized due to overlying bowel gas. RIGHT KIDNEY: 10.9 cm in length with a cortical thickness of 1.6 cm. No hydronephrosis. Simple 1.1 cm upper pole cyst. US/Abdomen Limited IMPRESSION: Hepatic steatosis with mild hepatomegaly. No sonographic evidence of cholelithiasis. Electronically Signed: [place] MD at 12:48 EST ,
== END | disposition home or self-care (01) ==
LOC: US 08:07
PROVIDERS: PCP Internal Medicine; Referring Provider Internal Medicine; Visit Provider Internal Medicine
DX: R10.13 Epigastric pain (principal)
CPT/HCPCS: 76705

== ENCOUNTER → 2024-07-27 | Outpatient (CLI) | payer MEDICARE, SELFPAY ==
--- NOTE | 2024-07-27 08:12 | CT_ITS ---
INDICATION: Abdominal distension EXAMINATION: CT ABDOMEN AND PELVIS WITH CONTRAST - CT Abdomen And Pelvis W/ Contrast Injection TECHNIQUE: Helically acquired images were obtained of the abdomen and pelvis following IV contrast. A radiation dose optimization technique was used for this scan. IV Contrast dosage and agent: 100 cc Isovue-300 Oral contrast: [Yes COMPARISON: 02/14/2014 FINDINGS: LOWER CHEST: Lung bases are clear. No cardiomegaly or pericardial effusion. LIVER: Homogeneous. No focal mass. GALLBLADDER AND BILIARY TREE: No calcified gallstones. No gallbladder distension or wall edema. No intra- or extrahepatic biliary ductal dilation. PANCREAS: No focal cystic or solid mass. SPLEEN: Normal size without focal cystic or solid mass. ADRENAL GLANDS: Stable 2 cm nodule left adrenal. KIDNEYS AND URETERS: Bilateral enhancement. No hydronephrosis. PERITONEUM: No ascites or free air. BOWEL: No evidence of acute appendicitis. No stomach or bowel distension. No focal inflammatory change. LYMPH NODES: No enlarged mesenteric or retroperitoneal lymph nodes. VESSELS: Aorta is non-dilated. URINARY BLADDER: Unremarkable. REPRODUCTIVE ORGANS: Uterus absent. ABDOMINAL WALL: No discrete abdominal or pelvic wall hernia. BONES: No acute or aggressive abnormality. CT/Abdomen/Pelvis WITH Contrast IMPRESSION: No acute findings in the abdomen or pelvis. Stable 2 cm left adrenal nodule. No follow-up indicated. Electronically Signed: Weston Collins MD at 19:42 EST ,
== END | disposition home or self-care (01) ==
PROVIDERS: PCP Internal Medicine; Referring Provider Internal Medicine; Visit Provider Internal Medicine
DX: R14.0 Abdominal distension (gaseous) (principal)
CPT/HCPCS: 74177; Q9967

== ENCOUNTER → 2024-09-12 | Outpatient (CLI) | payer MEDICARE, SELFPAY ==
--- NOTE | 2024-09-12 12:32 | NM_ITS ---
PROCEDURE: GASTRIC EMPTYING STUDY REASON FOR EXAM: EARLY SATIETY TECHNIQUE: The patient ingested a mixture of 1.2 mCi of technetium labeled sulfur colloid with oatmeal. RADIOPHARMACEUTICAL: 1.2 mCi of technetium labeled sulfur colloid. COMPARISON: None. FINDINGS: A gastric emptying study was performed up to 1 hour. By 1 hour, 66% of the ingested radiopharmaceutical exited the stomach. This is a normal study. NM/Gastric Emptying Study IMPRESSION: Normal gastric emptying scan. Reading Location: [place] [id number]
== END | disposition home or self-care (01) ==
LOC: NM 12:31
PROVIDERS: PCP Internal Medicine
DX: R68.81 Early satiety (principal); K58.0 Irritable bowel syndrome with diarrhea
CPT/HCPCS: 78264; A9541

== ENCOUNTER → 2024-09-20 | Outpatient (CLI) | payer MEDICARE, SELFPAY ==
--- NOTE | 2024-09-20 10:03 | BI_ITS ---
PROCEDURE: SCRN MAMM (CAD)W/CASTILLO BILAT REASON FOR EXAM: F, Age 69 y/o, presents for annual screening mammogram. Family history of breast cancer in 2 paternal aunts and a paternal cousin. TECHNIQUE: Bilateral screening digital breast tomosynthesis with 2D and 3D images. Computer aided detection. COMPARISON: 06/19/2015, 01/22/2014 FINDINGS: The breasts are almost entirely fatty. No suspicious masses, areas of developing architectural distortion, or suspicious calcifications. BI/SCRN MAMM (CAD)W/CASTILLO BILAT IMPRESSION: There is no mammographic evidence of malignancy. BI-RADS 1: NEGATIVE. RECOMMEND ANNUAL MAMMOGRAPHIC SCREENING. Follow-up code: Routine Follow-up The patient will be notified of the results by letter. Reading Location: [id number]
== END | disposition home or self-care (01) ==
LOC: OPBI 10:02
PROVIDERS: PCP Internal Medicine; Referring Provider Internal Medicine; Visit Provider Internal Medicine
DX: Z12.31 Encounter for screening mammogram for malignant neoplasm of breast (principal)
CPT/HCPCS: 77063; 77067

== ENCOUNTER → 2025-01-19 | Outpatient (REF) | payer SELFPAY | LOC: CVS 09:05 | PROVIDERS: PCP Internal Medicine | DX: Z00.00 Encounter for general adult medical examination without abnormal findings (principal) ==

== ENCOUNTER → 2025-01-25 | Outpatient (CLI) | payer MEDICARE, SELFPAY ==
--- NOTE | 2025-01-25 12:27 | BD_ITS ---
PROCEDURE: DEXA BONE DENSITY STUDY 01/25/2025 REASON FOR EXAM: F, age 69 y/o . Postmenopausal. TECHNIQUE: DEXA BONE DENSITY STUDY COMPARISON: Prior study dated May 12, 2011. FINDINGS: BMD and T-SCORES Lumbar spine: 0.987 g/cm2, T-score -0.6 Levels: L1 through L4 Change from prior: Loss of 12.6%. Left femoral neck: 0.861 g/cm2, T-score 0.1 Femoral neck comparison data not recommended for monitoring change. Left total hip: 1.078 g/cm2, T-score 1.1 Change from prior: Loss of 11.7%. Right femoral neck: 0.839 g/cm2, T-score -0.1 Femoral neck comparison data not recommended for monitoring change. Right total hip: 1.123 g/cm2, T-score 1.5 Change from prior: Loss of 5.3%. The World Health Organization has defined the following categories based on bone density: Normal bone density: T-score equal to or greater than -1.0 Osteopenia: T-score between -1.0 and -2.5 Osteoporosis: T-score equal to or less than -2.5 The patient does meet the pharmacological treatment recommendations for prevention of osteoporosis. BD/Dexa Bone Density Study IMPRESSION: NORMAL T-SCORES. Recommend follow-up as clinically warranted. Reading Location: [id number]
== END | disposition home or self-care (01) ==
LOC: OPBD 12:26
PROVIDERS: PCP Internal Medicine; Referring Provider Internal Medicine; Visit Provider Internal Medicine
DX: Z78.0 Asymptomatic menopausal state (principal)
CPT/HCPCS: 77080

== ENCOUNTER → 2025-07-02 | Outpatient (CLI) | payer MEDICARE, SELFPAY ==
[2025-07-02 12:42] LABS: Vitamin B12 739 pg/mL (180-914)
== END | disposition home or self-care (01) ==
LOC: CIMLAB 09:27
PROVIDERS: PCP Internal Medicine; Referring Provider Internal Medicine; Visit Provider Internal Medicine
DX: E87.5 Hyperkalemia (principal); E11.9 Type 2 diabetes mellitus without complications; E53.8 Deficiency of other specified B group vitamins
CPT/HCPCS: 36415; 82607; 83036